=== PATIENT | male | born 1950 | race Caucasian/White ===

== ENCOUNTER 2021-02-04 09:16 | Emergency (ER) | payer OTHER ==
[2021-02-04 09:57] LABS: BASOPHIL 0.9 % (0-2); EOSINOPHIL 2.8 % (0-7); HCT 36.8 % (42.0-52.0); HGB 12.6 g/dl (13.2-18.0); LYMPHOCYTE 30.3 % (15-48); MCH 33.4 pg (25.0-31.0); MCHC 34.2 g/dL (32.0-36.0); MCV 97.6 fL (78.0-100.0); MONOCYTE 9.9 % (0-12); MPV 10.6 fL (6.0-9.5); NEUTROPHIL 55.6 % (41-80); NRBC 0; PLT 175 K/uL (150-400); RBC 3.77 M/uL (4.70-6.00); RDW 12.6 % (11.5-14.0); WBC 5.8 K/uL (4.0-10.5)
[2021-02-04 10:05] LABS: INR 0.97 (0.9-1.2); PROTHROMBIN TIME 12.3 SECONDS (11.8-13.4); PTT 26.3 SECONDS (24.4-34.7)
[2021-02-04 10:06] LABS: D-DIMER 0.48 ug/mLFEU (0.00-0.41)
[2021-02-04 10:20] LABS: ALBUMIN 3.7 g/dL (3.4-5.0); BILIRUBIN - TOTAL 0.4 mg/dL (0.2-1.0); BUN/CREAT RATIO (CALC) 27.4 RATIO; CREATININE 0.84 mg/dL (0.67-1.17); GLOBULIN (CALCULATION) 3.6 g/dL; POTASSIUM 4.3 mmol/L (3.5-5.1); TOTAL PROTEIN 7.3 g/dL (6.4-8.2)
== END 2021-02-04 15:50 | disposition other institution (70) ==
LOC: FER 09:16
PROVIDERS: Emergency Medicine Emergency Medical Services
DX: I21.4 Non-ST elevation (NSTEMI) myocardial infarction (principal); J43.9 Emphysema, unspecified; I10 Essential (primary) hypertension; Z20.822 Contact with and (suspected) exposure to COVID-19
CPT/HCPCS: 36415; 71045; 80053; 83605; 83690; 83880; 84145; 84484; 85025; 85379; 85610; 85730; 87339; 93005; J1644; U0002

== ENCOUNTER → 2021-12-11 | Day surgery (SDC) | payer MEDICARE ==
[~2021-12-11] VITALS: Ht 167.6 cm; Wt 74.8 kg
[~2021-12-11] MED LIST: ADVIL200 M1 PO; ALLOPURINOL300 MG PO; BRILINTA90 MG PO; FLAX SEED OIL1 EACH PO; IBUPROFEN PM C1 EAC1 PO; TOPROL XL 25MG25 MG PO; VITAMIN B12 PO; VITAMIN D350 MC3 PO
== END | disposition home or self-care (01) ==
LOC: FAS 07:12
DX: K63.5 Polyp of colon (principal); K62.1 Rectal polyp; M19.90 Unspecified osteoarthritis, unspecified site; I10 Essential (primary) hypertension; I25.2 Old myocardial infarction; I25.10 Atherosclerotic heart disease of native coronary artery without angina pectoris; K21.9 Gastro-esophageal reflux disease without esophagitis; M10.9 Gout, unspecified; E78.00 Pure hypercholesterolemia, unspecified; Z87.891 Personal history of nicotine dependence; Z79.02 Long term (current) use of antithrombotics/antiplatelets; Z79.82 Long term (current) use of aspirin; Z79.899 Other long term (current) drug therapy; Z88.8 Allergy status to other drugs, medicaments and biological substances; Z95.2 Presence of prosthetic heart valve; Z95.5 Presence of coronary angioplasty implant and graft
CPT/HCPCS: J2704; J7120